=== PATIENT | male | born 1980 | race Caucasian/White ===

== ENCOUNTER 2019-02-05 19:54 | Emergency (ER) | payer OTHER ==
[~2019-02-05] VITALS: Ht 193 cm; Wt 96.6 kg
== END 2019-02-05 22:47 | disposition home or self-care (01) ==
LOC: ER 19:54
DX: I49.9 Cardiac arrhythmia, unspecified (principal)

== ENCOUNTER 2019-04-18 20:10 | Emergency (ER) | payer OTHER ==
[~2019-04-18] VITALS: Ht 193 cm; Wt 95.3 kg
== END 2019-04-18 22:03 | disposition home or self-care (01) ==
LOC: ER 20:10
DX: H66.92 Otitis media, unspecified, left ear (principal)